=== PATIENT | male | born 1985 | race Caucasian/White ===

== ENCOUNTER 2023-03-09 11:30 | Emergency (ER) | payer OTHER, SELFPAY ==
[2023-03-09 11:36] VITALS: BP 130/70; PULSE 102; RESP 16; TEMP 36.4; O2SAT 96; BMI 27.9
[2023-03-09 14:00] VITALS: BP 135/82; PULSE 81; RESP 18; O2SAT 98
--- NOTE | 2023-03-09 14:22 | ED_ITS ---
HPI - Back Pain/Injury General Chief Complaint: Back Pain/Injury Stated Complaint: back pain Time Seen by Provider: 03/09/23 14:22 Source: patient Mode of arrival: Ambulatory Limitations: no limitations History of Present Illness HPI Narrative: This is a 38-year-old male with known history of low back pain and sciatica. Patient states started having issues in December after a workout initially had low back pain then had pretty significant sciatica pain with left leg pain and has had some persistent weakness with his left calf and paresthesias in the posterior leg and calf. Patient states that has improved over time. States this Friday he picked up his 8-month-old and felt that he tweaked his back. Was improving somewhat but then moved a bunch of things yesterday and had increased pain. He states it is mostly his low back. He is not having any increased pain down his legs. No new numbness, tingling or weakness. Patient states no loss of bowel or bladder control. Has not had progressive symptoms otherwise. No fevers or chills. He would an MRI in December. He has follow up with primary care and has had a consult put in to follow-up with Neurosurgery. Patient states he has been taking Tylenol and ibuprofen PRN for pain. He has also been taking methocarbamol 750 mg prn but only has 2 tablets left and is going into the holiday. Patient requesting refill of medication. He did reach out to his primary care but they are currently [place] of [place]. Related Data Previous Rx's Medication Instructions Recorded meloxicam 7.5 mg tablet 7.5 mg PO BID PRN pain #20 tabs 03/09/23 methocarbamol 750 mg tablet 750 mg PO Q8H PRN muscle spasm #14 03/09/23 tabs Allergies Allergy/AdvReac Type Severity Reaction Status Date / Time No Known Drug Allergies Allergy Verified 03/09/23 11:35 Review of Systems Review of Systems ROS Unobtainable: All systems reviewed & are unremarkable except as noted in HPI and below Patient History Social History Smoking Status: Never smoker Smoking Status: Never smoker Substance Use Type: does not use Exam Narrative Exam Narrative: GENERAL: Alert and oriented x three, well-appearing male in mild distress. Patient is seated on the edge of the gurney. HEENT: Head normocephalic, atraumatic, EOMI, pupils reactive, face symmetric, moist mucous membranes NECK: Supple, full range of motion CARDIOVASCULAR: Regular rate and rhythm without murmurs, rubs or gallops. RESPIRATORY: Breath sounds equal bilaterally, no wheezes rales or rhonchi. ABDOMEN: Soft, nontender. Normoactive bowel sounds all 4 quadrants. No guarding or rebound, rigidity, no mass : No CVA tenderness BACK: No cervical, thoracic or lumbar vertebral point tenderness. Patient has slightly decreased but overall normal range of motion. Patient's gait is normal. Rectal exam is deferred. Muscle strength is 5/5 in lower extremities, Dorsalis pedis and tibialis pulses are 2+ and lower extremities. Sensation intact bilateral extremities. EXTREMITIES: Normal range of motion, no clubbing or edema. Neurovascularly intact NEUROLOGICAL: Cranial nerves II through XII grossly intact. Moving all extremities SKIN: Warm, dry, no petechiae, no rashes or lesions. Initial Vital Signs Initial Vital Signs: Vital Signs Temperature 97.5 F L 03/09/23 11:36 Pulse Rate 102 H 03/09/23 11:36 Respiratory Rate 16 03/09/23 11:36 Blood Pressure 130/70 03/09/23 11:36 Pulse Oximetry 96 03/09/23 11:36 Oxygen Delivery Method Room Air 03/09/23 11:36 Course Orders Ordered: Discontinued Medications Ketorolac Tromethamine (Ketorolac 30 Mg/Ml Vial) 30 mg IM NOW ONE Stop: 03/09/23 14:56 Last Admin: 03/09/23 15:15 Dose: 30 mg Documented By: OW Vital Signs Vital signs: Vital Signs - 8 hr 03/09/23 11:36 03/09/23 14:00 03/09/23 14:30 Temperature 97.5 F L Pulse Rate 102 H 81 83 Respiratory Rate 16 18 18 Blood Pressure 130/70 135/82 113/58 L Pulse Oximetry 96 98 97 Oxygen Delivery Method Room Air Room Air Room Air 03/09/23 15:00 Temperature Pulse Rate 80 Respiratory Rate 18 Blood Pressure 125/73 Pulse Oximetry 96 Oxygen Delivery Method Room Air MDM - Back Pain/Injury MDM Narrative Medical decision making narrative: 38-year-old male with increase of low back pain, has some chronic paresthesias and calf weakness is in process to follow up with neurosurgeon. Patient had does not have any new red flag symptoms. States it is mostly his lower back after lifting his 8-month-old 2 days ago and then moving some objects yesterday. Patient has a appropriate follow up has had an MRI in December. Discussed return precautions patient expresses understanding. We will refill methocarbamol, also give a short course of meloxicam for pain t hat he can take with Tylenol PRN. Discharge Plan Departure Patient Disposition: Home Clinical Impression: Acute exacerbation of chronic low back pain Instructions: DI for Low Back Pain Activity Restrictions/Additional Instructions: I hope you feel improved over the next week. If you are having persistent problems please follow-up. You may take Tylenol up to a 1000 mg every 6 hours as needed for pain. You can take meloxicam 1 tablet every 12 hours. You can take this with Tylenol. Do not take other NSAIDs such as ibuprofen, Aleve or naproxen with this medication. You can take methocarbamol 1 tablet every 8 hours as needed for muscle spasm. This medication can make you sleepy do not drive, perform hazardous activities or make any major decisions while taking it. Prescription sent to [facility] in [place]. Please return for rapidly worsening pain, new numbness, loss of strength or weakness, loss of bowel or bladder control, inability to walk, fevers or other new or concerning changes. Prescriptions: New methocarbamol 750 mg tablet 750 mg PO Q8H PRN (Reason: muscle spasm) Qty: 14 0RF meloxicam 7.5 mg tablet 7.5 mg PO BID PRN (Reason: pain) Qty: 20 0RF Referrals: Miscellaneous,Doctor, [Primary Care Provider] - Stand Alone Forms: Patient Portal/API
[2023-03-09 14:30] VITALS: BP 113/58; PULSE 83; RESP 18; O2SAT 97
[2023-03-09 15:00] VITALS: BP 125/73; PULSE 80; RESP 18; O2SAT 96
[2023-03-09] MEDS: KETOROLAC 30 MG/ML VIAL IM (15:15)
== END 2023-03-09 15:26 | disposition home or self-care (01) ==
PROVIDERS: Emergency Provider Emergency Medicine
DX: M54.50 Low back pain, unspecified (principal)
CPT/HCPCS: 96372; 99283; J1885